=== PATIENT | female | born 1990 | race Hispanic/Latino ===

== ENCOUNTER → 2017-12-09 | Outpatient (CLI) | payer MEDICAID ==
[~2017-12-09] VITALS: Ht 152.4 cm; Wt 100.9 kg
[~2017-12-09] MED LIST: LACTATED RINGERS 1000ML 1,000 ML IV SCH
[2017-12-09 09:15] VITALS: BP 114/52
[2017-12-09 09:38] LABS: BASOPHILS % (AUTO) 0.5 % (0.0-5.0); EOSINOPHILS % (AUTO) 1.6 % (0.0-8.0); HEMATOCRIT 41.2 % (36-48); LYMPHOCYTES % (AUTO) 38.2 % (21.0-51.0); MEAN CORPUSCULAR HEMOGLOBIN 30.5 pg (27.0-33.0); MEAN CORPUSCULAR HGB CONC 33.8 g/dL (32.0-36.0); MEAN CORPUSCULAR VOLUME 90.4 fL (79-99); MONOCYTES % (AUTO) 7.1 % (3.0-13.0); NEUTROPHILS % (AUTO) 52.6 % (40.0-77.0); NUCLEATED RED BLOOD CELLS 0.1 % (0.0-0.19); PLATELET COUNT (AUTO) 299 K/uL (130-400); RED BLOOD CELL COUNT(AUTO) 4.56 MIL/uL (4.00-5.50); WHITE BLOOD COUNT (AUTO) 6.8 K/uL (4.8-10.8)
== END | disposition home or self-care (01) ==
LOC: DAH 10:00 → EDSTATUS 12-17 07:45
PROVIDERS: ATTEND Specialist
DX: Z30.2 Encounter for sterilization (principal)
CPT/HCPCS: 36415; 84703; 85025; 86850; 86900; 86901

== ENCOUNTER 2017-12-24 07:19 | Day surgery (SDC) | payer MEDICAID ==
[2017-12-23 09:26] VITALS: BP 121/60
[2017-12-23 09:36] LABS: BASOPHILS % (AUTO) 0.5 % (0.0-5.0); LYMPHOCYTES % (AUTO) 22.5 % (21.0-51.0); MEAN CORPUSCULAR HEMOGLOBIN 30.3 pg (27.0-33.0); MEAN CORPUSCULAR HGB CONC 33.5 g/dL (32.0-36.0); MEAN CORPUSCULAR VOLUME 90.4 fL (79-99); MONOCYTES % (AUTO) 7.4 % (3.0-13.0); NEUTROPHILS % (AUTO) 68.6 % (40.0-77.0); PLATELET COUNT (AUTO) 289 K/uL (130-400); RED BLOOD CELL COUNT(AUTO) 4.43 MIL/uL (4.00-5.50); RED CELL DISTRIBUTION WIDTH 12.8 % (11.0-15.5); WHITE BLOOD COUNT (AUTO) 8.5 K/uL (4.8-10.8)
[~2017-12-24] VITALS: Ht 149.9 cm; Wt 101.0 kg
[2017-12-24] VITALS (18 sets, daily range): BP systolic 100–121; BP diastolic 55–68
[2017-12-24] MEDS ORDERED: OCTYL 2-CYANOACRYLATE 1 EACH TP ONE (07:40)
[2017-12-24] MEDS ORDERED: MIDAZOLAM HCL 1 MG/ML 2ML VIAL ONE (07:48)
[2017-12-24] MEDS ORDERED: PROPOFOL 10 MG/ML 20ML VIAL IV ONE ×2 (07:53→09:24)
[2017-12-24] MEDS ORDERED: ROCURONIUM BROMIDE 10MG/1ML 5ML VL ONE (07:53)
[2017-12-24] MEDS ORDERED: LIDOCAINE PF 2% 5ML ABBOJECT ONE (07:53)
[2017-12-24] MEDS ORDERED: ONDANSETRON HCL 4 MG/2 ML VIAL ONE (07:53)
[2017-12-24] MEDS ORDERED: FENTANYL CITRATE PF 50 MCG/1 ML 2ML VIAL ONE ×3 (07:53→08:50)
[2017-12-24] MEDS ORDERED: LACTATED RINGERS 1000ML 1,000 ML IV SCH (08:00)
[2017-12-24] MEDS ORDERED: ACETAMINOPHEN-CODEINE 300/30MG TAB ONE (10:21)
== END 2017-12-24 10:55 | disposition home or self-care (01) ==
LOC: DAH 07:19
PROVIDERS: ATTEND Specialist
DX: Z30.2 Encounter for sterilization (principal); E66.01 Morbid (severe) obesity due to excess calories
CPT/HCPCS: 36415; 36430; 58671; 84703; 85025; 86850; 86900; 86901; A4215; A4264; A4351; C1769 ×2; J2001; J2250; J2405; J2704 ×2; J3010 ×2; J3490; J7120